=== PATIENT | male | born 1970 | race Caucasian/White ===

== ENCOUNTER 2023-07-05 15:00 | Emergency (ER) | payer OTHER ==
[2023-07-05] MEDS ORDERED: Lidocaine 1% 5 ML VIAL INJECT ONE (15:53)
[2023-07-05] MEDS ORDERED: Diphtheria,Pertussis(Acell),Tetanus Vaccine 0.5 ML Syringe IM ONE (15:54)
[2023-07-05] MEDS ORDERED: Bacitracin Oint 1 GM U/D Packet TOP ONE (15:54)
== END 2023-07-05 17:20 | disposition home or self-care (01) ==
LOC: JP.ED 15:00
DX: S67.192A Crushing injury of right middle finger, initial encounter (principal); Z23 Encounter for immunization; W23.0XXA Caught, crushed, jammed, or pinched between moving objects, initial encounter
CPT/HCPCS: 73140-26-F7; 73140-F7; 90471; 90715; 99283-25; 99284